=== PATIENT | male | born 1990 | race Two or more races ===

== ENCOUNTER 2023-09-13 09:09 | Day surgery (SDC) | payer OTHER ==
[2023-09-13] MEDS ORDERED: MIDAZOLAM HCL 2 MG/2 ML VIAL IV ONE (14:00)
[2023-09-13] MEDS ORDERED: ONDANSETRON HCL 2 MG/ML VIAL IV ONE (14:00)
[2023-09-13] MEDS ORDERED: fentaNYL CITRATE 50 MCG/ML AMPUL IV PUSH ONE (14:00)
[2023-09-13] MEDS ORDERED: DIPHENHYDRAMINE HCL 50 MG/ML VIAL 1ML IV ONE (14:00)
== END 2023-09-13 15:10 | disposition home or self-care (01) ==
LOC: AMB-ENDOS 09:09
PROVIDERS: ATTEND Colon & Rectal Surgery
DX: K57.30 Diverticulosis of large intestine without perforation or abscess without bleeding (principal); Z20.822 Contact with and (suspected) exposure to COVID-19

== ENCOUNTER 2024-01-05 06:00 | Day surgery (SDC) | payer OTHER ==
[2024-01-05] MEDS ORDERED: CEFTRIAXONE SODIUM 2,000 MG VIAL IV ONE (08:00)
[2024-01-05] MEDS ORDERED: BUPIVACAINE HCL 30 ML VIAL IJ ONE (08:00)
[2024-01-05] MEDS ORDERED: LIDOCAINE HCL 1%/EPINEPHRINE 20ML VIAL IJ ONE (08:00)
[2024-01-05] MEDS ORDERED: METROnidazole 500 MG TABLET PO ONE (08:00)
== END 2024-01-05 11:35 | disposition home or self-care (01) ==
LOC: CIR.AMB 06:00 → U 06:00 → CIR.AMB 11:35
PROVIDERS: ATTEND Colon & Rectal Surgery
DX: R15.9 Full incontinence of feces (principal); R32 Unspecified urinary incontinence; Z88.8 Allergy status to other drugs, medicaments and biological substances; I10 Essential (primary) hypertension; K59.00 Constipation, unspecified; B20 Human immunodeficiency virus [HIV] disease; J32.9 Chronic sinusitis, unspecified
CPT/HCPCS: 64590; 95971; C1767